=== PATIENT | female | born 1985 | race Caucasian/White ===

== ENCOUNTER → 2021-01-27 10:07 | Outpatient (CLI) | payer OTHER, SELFPAY ==
[2021-01-27 10:38] LABS: COVID19 -Nasal RAPID Negative (Negative)
== END ==
PROVIDERS: Referring Provider Nurse Practitioner Family; Visit Provider Nurse Practitioner Family
DX: Z20.822 Contact with and (suspected) exposure to COVID-19 (principal)
CPT/HCPCS: 87635

== ENCOUNTER → 2023-11-21 09:14 | Outpatient (CLI) | payer OTHER, SELFPAY ==
[2023-11-21 10:32] LABS: Hemoglobin A1C% w Est Avg Glu 5.8 % (4.0-6.0)
[2023-11-21 11:00] LABS: Cholesterol 248 mg/dL (140-199); HDL Cholesterol 54 mg/dL (40-60); LDL Cholesterol Calculated 147 mg/dL (<100); Triglycerides 235 mg/dL (35-150)
[2023-11-21 11:24] LABS: TSH w/ Reflex to FT4 2.29 uIU/mL (0.47-4.68)
== END ==
PROVIDERS: PCP Family Medicine; Referring Provider Family Medicine; Visit Provider Family Medicine
DX: Z13.1 Encounter for screening for diabetes mellitus (principal); R63.5 Abnormal weight gain; Z13.220 Encounter for screening for lipoid disorders
CPT/HCPCS: 36415; 80061; 83036; 84443

== ENCOUNTER → 2023-11-24 09:42 | Outpatient (CLI) | payer OTHER, SELFPAY | LOC: LAB 09:43 | PROVIDERS: PCP Family Medicine; Referring Provider Family Medicine; Visit Provider Family Medicine | DX: Z12.39 Encounter for other screening for malignant neoplasm of breast (principal); Z80.3 Family history of malignant neoplasm of breast | CPT/HCPCS: 36415 ==